=== PATIENT | male | born 2000 | race Caucasian/White ===

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

== ENCOUNTER 2019-04-19 15:05 | Emergency (ER) | payer MEDICAID ==
--- NOTE | 2019-04-19 15:35 | Emergency Department Record ---
History of Present Illness - General Chief Complaint: Ankle/Foot Injury Stated Complaint: RT FOOT INJURY Time Seen by Provider: 04/19/19 15:23 Source: Patient Mode of Arrival: Ambulatory Limitations: No limitations - History of Present Illness Initial Comments: The patient is here due to R foot pain. He kicked an object with the foot yesterday while running and has had pain and swelling since. He is able to walk on it and denies any ankle pain. MD Complaint: Foot injury Onset/Timin -: Hour(s) Type of Injury: Blunt Place: Home Improves With: Nothing Worsens With: Nothing Context: Direct blow, Running - Related Data Allergies Allergy/AdvReac Type Severity Reaction Status Date / Time No Known Drug Allergies Allergy Verified 11/30/15 20:16 Travel Screening - Travel/Exposure Within Last 30 Days Have you traveled within the last 30 days?: No - Travel/Exposure Within Last Year Have you traveled outside the [place] in the last year?: No - Additonal Travel Details Have you been exposed to anyone with a communicable illness?: No - Travel Symptoms Symptom Screening: None Review of Systems Constitutional: Denies: Chills, Fever Past Medical History - SOCIAL HISTORY Smoking Status: Never smoker Alcohol Use: None Drug Use: Occasional Drug Use Detail:: Marijuana - RESPIRATORY Hx Respiratory Disorders: Yes Hx Asthma: Yes (hx) - CARDIOVASCULAR Hx Cardio Disorders: No - NEURO Hx Neuro Disorders: No - GI Hx GI Disorders: Yes Hx Reflux: Yes - Hx Genitourinary Disorders: No - ENDOCRINE Hx Endocrine Disorders: No Hx Diabetes: No Hx Thyroid Disease: No - MUSCULOSKELETAL Hx Musculoskeletal Disorders: No - PSYCH Hx Psych Problems: No - HEMATOLOGY/ONCOLOGY Hx Hematology/Oncology Disorders: No Family Medical History Any Significant Family History?: No Hx Diabetes: Mother, Grandparents Hx Heart Disease: Grandparents Hx HTN: Mother, Grandparents Physical Exam - General General Appearance: Alert, Oriented x3, Cooperative, No acute distress - Head Head exam: Atraumatic, Normocephalic, Normal inspection - Eye Eye exam: Normal appearance, PERRL - Extremities Extremities exam: Full ROM, Normal capillary refill, Tenderness (over the dorsal foot.), Other (There is no R knee or ankle pain or tenderness. The R foot is NVI with normal pulses and normal flexion and extension.). negative: Normal inspection (There is mild dorsal foot swelling with tenderness. There is no ankle swelling or tenderness.), Joint swelling Image of Feet: 1 - Area of pain and swelling. - Neurological Neurological exam: Alert, Normal gait. negative: Abnormal gait, Motor sensory deficit Course Vital Signs 04/19/19 15:18 Temperature 98.3 F Pulse Rate [ 94 H Pulse Ox Probe] Respiratory 16 Rate Blood Pressure 148/86 [Left Arm] Pulse Ox 98 - Reevaluation(s) Reevaluation #1: I did discuss the neg xrays with the patient and the need for F/U with his PCP if not better in 3 days. 04/19/19 16:09 Medical Decision Making - Data Complexity MDM Data: X-Ray Ordered and/or Reviewed - Radiology Data Radiology results: Report reviewed (R foot: Neg.) Disposition Disposition: Discharge Clinical Impression: Contusion of foot Qualifiers: Encounter type: initial encounter Laterality: right Qualified Code(s): S90.31XA - Contusion of right foot, initial encounter Disposition: Home, Self-Care Condition: (2) Stable Instructions: Foot Contusion (ED) Additional Instructions: Please ice and elevate the R foot and use the Post Op shoe for 3-5 days. Take Tylenol or Motrin for pain. Please see your family doctor for recheck later this week if not better and return to the ER for any worsening symptoms. Forms: Patient Portal Access Time of Disposition: 16:12 Quality - Quality Measures Quality Measures: N/A - Blood Pressure Screening View Details: Yes Does Patient Have Any of the Following: No Blood Pressure Classification: Pre-Hypertensive BP Reading Systolic Measurement: 148 Diastolic Measurement: 86 Screening for High Blood Pressure: < Pre-Hypertensive BP, F/U Documented > [[id number]] Pre-Hypertensive Follow-up Interventions: Referral to alternative/primary care provider.
--- NOTE | 2019-04-20 13:14 | RADIOLOGY REPORT ---
EXAM: RIGHT FOOT, THREE VIEWS HISTORY: PAIN ACROSS METATARSALS AFTER KICKING TABLE. TECHNIQUE: Three views of the right foot were obtained. Comparison: None. Encounter: Initial. FINDINGS: There is normal bone mineralization. No definite acute fracture, dislocation, or destructive bone lesion is seen. The articular relations are maintained. There is dorsal soft tissue swelling. IMPRESSION: 1. NO DEFINITE ACUTE FRACTURE NOR DISLOCATION. 2. DORSAL SOFT TISSUE SWELLING. JOB NUMBER: [id number] MTDD
== END 2019-04-19 16:22 | disposition home or self-care (01) ==
LOC: ER 15:05
DX: S90.31XA Contusion of right foot, initial encounter (principal); W22.8XXA Striking against or struck by other objects, initial encounter; Y92.009 Unspecified place in unspecified non-institutional (private) residence as the place of occurrence of the external cause
CPT/HCPCS: 99283